=== PATIENT | male | born 1980 | race Caucasian/White ===

== ENCOUNTER 2017-08-21 10:38 | Outpatient (CLI) | payer BC ==
--- NOTE | 2017-08-21 11:32 | CT ---
ABDOMEN AND PELVIC CT NONCONTRAST: COMPARISON: 11/27/11. CLINICAL HISTORY: Urinary frequency, microscopic hematuria. FINDINGS: Punctate densities are seen within each kidney indicating punctate nonobstructing bilateral nephrolit hiasis. There is fatty infiltration of the liver with relative sparing near the gallbladder. There is mild scattered vascular calcification. No consolidation or effusion at the imaged lower chest. N O pneumoperitoneum. Osseous structures are nonacute in comparison. Scattered colonic diverticula ar e present. There are patulous fat-containing inguinal rings bilaterally. Incidental note of granulo matous calcification at the left lung base. IMPRESSION: Punctate nonobstructing bilateral nephrolithiasis. Evaluation otherwise limited on the basis of nonc ontrast technique. POS: [facility]
== END 2017-08-21 10:39 | disposition home or self-care (01) ==
LOC: SCSCT 10:38
PROVIDERS: ATTEND Family Medicine
DX: R35.0 Frequency of micturition (principal); R31.9 Hematuria, unspecified; N20.0 Calculus of kidney
CPT/HCPCS: 74176

== ENCOUNTER 2019-05-20 19:30 | Outpatient (CLI) | payer BC | END 2019-05-20 19:31 | disposition home or self-care (01) | LOC: SLEEPLAB 19:30 | PROVIDERS: ATTEND Allergy & Immunology | DX: G47.33 Obstructive sleep apnea (adult) (pediatric) (principal); R06.83 Snoring; F41.9 Anxiety disorder, unspecified; G47.10 Hypersomnia, unspecified; I10 Essential (primary) hypertension; K21.9 Gastro-esophageal reflux disease without esophagitis; G47.00 Insomnia, unspecified | CPT/HCPCS: 95810 ==

== ENCOUNTER 2019-07-18 19:30 | Outpatient (CLI) | payer BC | END 2019-07-18 19:31 | disposition home or self-care (01) | LOC: SLEEPLAB 19:30 | PROVIDERS: ATTEND Allergy & Immunology | DX: G47.33 Obstructive sleep apnea (adult) (pediatric) (principal) | CPT/HCPCS: 95811 ==

== ENCOUNTER 2021-05-08 09:54 | Outpatient (CLI) | payer BC | END 2021-05-08 09:55 | disposition home or self-care (01) | LOC: EKG 09:54 | PROVIDERS: ATTEND Physician Assistant | DX: I10 Essential (primary) hypertension (principal); E78.2 Mixed hyperlipidemia | CPT/HCPCS: 93005; 93010 ==